=== PATIENT | male | born 1965 | race American Indian/Alaskan Native ===

== ENCOUNTER 2019-04-29 17:26 | Emergency (ER) | payer OTHER ==
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
[2019-04-29 17:36] VITALS: BP 138/84
[2019-04-29] MEDS ORDERED: TYLENOL PO ONE (17:47)
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
[2019-04-29] MEDS ORDERED: KEFLEX PO ONE (19:32)
[2019-04-29] MEDS ORDERED: NORCO 5/325 PO ONE (19:32)
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
[2019-04-29] MEDS ORDERED: TRIPLE ANTIBIOTIC TP ONE ×2 (20:17→20:20)
[2019-04-30] MEDS ORDERED: XYLOCAINE 1% 20 mL INFILTRATI ONE (19:40)
[2019-04-30] MEDS ORDERED: TRIPLE ANTIBIOTIC TP ONE (20:00)
== END 2019-04-29 21:11 | disposition home or self-care (01) ==
LOC: ED 17:26
DX: S92.902A Unspecified fracture of left foot, initial encounter for closed fracture (principal); S91.301A Unspecified open wound, right foot, initial encounter; V29.3XXA Motorcycle rider (driver) (passenger) injured in unspecified nontraffic accident, initial encounter; Y93.89 Activity, other specified; Y92.488 Other paved roadways as the place of occurrence of the external cause; Y99.8 Other external cause status
CPT/HCPCS: A6250